=== PATIENT | male | born 1985 | race Asian ===

== ENCOUNTER 2021-03-15 07:23 | Emergency (ER) | payer MEDICAID, OTHER ==
[~2021-03-15] VITALS: Ht 177.8 cm; Wt 80.7 kg
[2021-03-15] MEDS ORDERED: ONDANSETRON ODT 4 MG TAB PO ONE (09:30)
[2021-03-15] MEDS ORDERED: ACETAMINOPHEN 500 MG TAB PO ONE (09:30)
[2021-03-15 12:00] VITALS: BP 146/86
== END 2021-03-15 10:57 | disposition home or self-care (01) ==
LOC: ER 07:23
DX: G43.909 Migraine, unspecified, not intractable, without status migrainosus (principal); J32.9 Chronic sinusitis, unspecified
CPT/HCPCS: 70450; 99284; Q0162

== ENCOUNTER 2021-03-15 21:20 | Emergency (ER) | payer MEDICAID ==
[~2021-03-15] VITALS: Ht 177.8 cm; Wt 80.7 kg
[2021-03-15 21:30] VITALS: BP 135/83
== END 2021-03-15 22:04 | disposition left against medical advice (07) ==
LOC: ER 21:23
DX: R10.2 Pelvic and perineal pain (principal); Z53.21 Procedure and treatment not carried out due to patient leaving prior to being seen by health care provider

== ENCOUNTER 2024-10-03 19:54 | Emergency (ER) | payer MEDICAID, OTHER ==
[~2024-10-03] VITALS: Ht 177.8 cm; Wt 84.0 kg
--- NOTE | 2024-10-03 20:47 | ED.PDOC ---
History of Present Illness HPI Comments 39-year-old male, with no significant history, presents with complaint of flu- like symptoms, that includes cough, throat pain, body aches, shortness of breath, and right chest-wall pain, today. He reports symptoms beginning 6x days ago. He describes chest pain as tightness that worsens with deep inspirations. Patient reports being seen and evaluated at an urgent care facility, yesterday, and being prescribed Keflex antibiotics and Ibuprofen after being diagnosed with a throat infection, with provider then informing the patient on cause of diarrhea being due to him "swallowing the infection." He also comments on sjqj-cjh-nrelrem cough-syrup use and, aside from diarrhea improving, has had no relief or improvement of other symptoms. He denies any fever, chills, nausea, vomiting, urinary symptoms, or other associated symptoms or modifying factors at this time. Chief Complaint: Flu like Time Seen by MD: 20:20 Primary Care Provider: DENIES Reviewed Notes: Nurses Notes, Medications, Allergies Allergies: Coded Allergies: NO KNOWN ALLERGIES (Unverified , 03/15/21) Information Source: Patient Mode of Arrival: Ambulatory Severity: Moderate Timing: Days Duration: Since onset Prehospital treatment: Other (Antibiotics, cough syrup, ibuprofen) Review of Systems: REVIEW OF SYSTEMS: No fever, no chills, or fatigue HEENT: No sore throat, no earache, no congestion, no neck pain. Cardiac: No chest pain. No palpitations. Lungs: No shortness of breath, no cough. GI: No nausea, no vomiting, no diarrhea, no constipation, no abdominal pain : No dysuria, frequency, or urgency. No hematuria. Musculoskeletal: No joint pain , no joint swelling, no extremity edema. Skin: No rash, no itching. Neuro: No headache, no dizziness, no weakness Vital Signs Vital Signs Date Time Temp Pulse Resp B/P (MAP) Pulse Ox O2 Delivery O2 Flow Rate FiO2 10/03/24 21:31 98.4 83 20 132/69 (90) 94 98.4 Physical Exam General: Awake, alert and oriented. No acute distress. Skin: Skin in warm, dry and intact. Appropriate color for ethnicity. HEENT: The head is normocephalic and atraumatic. Conjunctivae are clear without exudates or hemorrhage. Sclera is non-icteric. EOM are intact. No signs of nystagmus. Eyelids are normal in appearance without swelling or lesions. Oral mucosa is pink and moist Neck: The neck is supple with normal range of motion. No JVD. Cardiac: Heart rate and rhythm are normal. No murmurs, gallops, or rubs are auscultated. Respiratory: No signs of respiratory distress. Lung sounds are clear in all lobes bilaterally without rales, ronchi, or wheezes. Abdominal: Abdomen is soft, non-tender without distention. Bowel sounds are present and normoactive in all four quadrants. Extremities: Upper and lower extremities are atraumatic in appearance without deformity or edema. Musculoskeletal: Right, anterior chest-wall tenderness. Neurological: The patient is awake, alert and oriented to person, place, and time with normal speech. Speech is clear. There is no facial asymmetry. Psychiatric: Appropriate mood and affect. Good judgement and insight. No visual or auditory hallucinations. Past Medical History PAST MEDICAL HISTORY: Denies Surgical History: Denies all surgeries Family History Family History: Reviewed,noncontributory to illness Social History Smoker: Non-Smoker Lives In: Home Was a procedure done? Was a procedure done?: No EKG EKG : Pulse Rate (adult): 81 [place]: Normal Cardiac Rhythm: NSR Block: None Hypertrophy: None ST: Normal Differential Dx Considerations may include: URI, strep throat, viral syndrome, pneumonia, bronchitis X-Ray, Labs, Meds, VS Vital Signs Date Time Temp Pulse Resp B/P (MAP) Pulse Ox O2 Delivery O2 Flow Rate FiO2 10/03/24 21:31 98.4 83 20 132/69 (90) 94 98.4 10/03/24 20:47 81 10/03/24 20:27 81 10/03/24 20:26 99.0 91 18 138/86 (103) 97 Lab Test 10/03/24 21:26 Range/Units Influenza Type A Antigen Negative Negative Influenza Type B Antigen Negative Negative SARS-CoV-2 Antigen (Rapid) Negative NEGATIVE Current Medications Medications (Trade) Dose Ordered Sig/Tierra Route Start Time Stop Time Status Last Admin Acetaminophen (Tylenol Tablet Or Capsule) 1,000 mg ONCE ONCE PO 10/03/24 20:45 10/03/24 20:46 DC 10/03/24 21:27 Time of 1ST Reevaluation: 20:50 Reevaluation 1ST: Unchanged Patient Education/Counseling: Treatment, Need For Follow Up Family Education/Counseling: No Family Present Departure 1 Departure Time of Disposition: 21:17 Impression: Primary Impression: Upper respiratory infection Disposition: 01 HOME / SELF CARE / HOMELESS Condition: Stable Additional Instructions: ED DISCHARGE INSTRUCTIONS Instructions: Please read all instructions provided in this packet carefully. Although you have been discharged from the Emergency Department, this does not mean that you have a "clean bill of health". No definitive diagnosis for your symptoms has been made today. It is possible that you are in the process of d eveloping a serious illness. This is why you must return to the ED without fail if any new or worsening symptoms (especially if your symptoms include chest pain, trouble breathing, abdominal pain, fever, headache, confusion, trouble seeing, or trouble walking) It is also very important that you see a primary care doctor within the next 3-5 days to follow up. If you are unable to get an appointment, return to the ED for re-evaluation. Upper Respiratory Infection (Cold): Care Instructions Table of Contents Overview How can you care for yourself at home? When should you call for help? Credits Respiratory system, including nose, sinuses, throat, and lungs Overview An upper respiratory infection, or URI, is an infection of the nose, sinuses, or throat. URIs are spread by coughs, sneezes, and direct contact. The common cold is the most frequent kind of URI. The flu and sinus infections are other kinds of URIs. Almost all URIs are caused by viruses. Antibiotics won't cure them. But you can treat most infections with home care. This may include drinking lots of fluids and taking tvzx-ccj-gezccpo pain medicine. You will probably feel better in 4 to 10 days. Follow-up care is a samson part of your treatment and safety. Be sure to make and go to all appointments, and call your doctor if you are having problems. It's also a good idea to know your test results and keep a list of the medicines you take. How can you care for yourself at home? To prevent dehydration, drink plenty of fluids. Choose water and other clear liquids until you feel better. If you have kidney, heart, or liver disease and have to limit fluids, talk with your doctor before you increase the amount of fluids you drink. Ask your doctor if you can take an frkr-bid-esqestk pain medicine, such as acetaminophen (Tylenol), ibuprofen (Advil, Motrin), or naproxen (Aleve). Be safe with medicines. Read and follow all instructions on the label. No one younger than 20 should take aspirin. It has been linked to Jael syndrome, a serious illness. Be careful when taking rmmw-dbs-rudakxo cold or flu medicines and Tylenol at the same time. Many of these medicines have acetaminophen, which is Tylenol. Read the labels to make sure that you are not taking more than the recommended dose. Too much acetaminophen (Tylenol) can be harmful. Get plenty of rest. Use saline (saltwater) nasal washes to help keep your nasal passages open and wash out mucus and allergens. You can buy saline nose sprays at a grocery store or drugstore. Follow the instructions on the package. Or you can make your own at home. Add 1 teaspoon of non-iodized salt and 1 teaspoon of baking soda to 2 cups of distilled or boiled and cooled water. Fill a squeeze bottle or neti pot with the nasal wash. Then put the tip into your nostril, and lean over the sink. With your mouth open, gently squirt the liquid. Repeat on the other side. Use a vaporizer or humidifier to add moisture to your bedroom. Follow the instructions for cleaning the machine. Do not smoke or allow others to smoke around you. If you need help quitting, talk to your doctor about stop-smoking programs and medicines. These can increase your chances of quitting for good. When should you call for help? Call 911 anytime you think you may need emergency care. For example, call if: You have severe trouble breathing. Call your doctor now or seek immediate medical care if: You seem to be getting much sicker. You have new or worse trouble breathing. You have a new or higher fever. You have a new rash. Watch closely for changes in your health, and be sure to contact your doctor if: You have a new symptom, such as a sore throat, an earache, or sinus pain. You cough more deeply or more often, especially if you notice more mucus or a change in the color of your mucus. You do not get better as expected. Credits for Upper Respiratory Infection (Cold): Care Instructions Current as of: November 23, 2023 Author: Irene Sprout Route Staff Clinical Review Board All [employer] education is reviewed by a team that includes physicians, nurses, advanced practitioners, registered dieticians, and other healthcare professionals. Comments 39-year-old male with cough, upper respiratory symptoms. Presentation not consistent with ACS, pulmonary embolism, aortic dissection. Labs, imaging reviewed not urgently actionable. Patient felt stable for discharge home. Patient well-appearing, nontoxic. Advised supportive treatment. Advised prompt follow-up with PCP, return to the ED with any new, worsening or concerning symptoms. Extensive evaluation was performed in attempt to identify or rule out: (See differential diagnosis section) The following tests were ordered, and results were reviewed by me: (See diagnostic results section) The following test were independently interpreted by me: EKG, chest x-ray-no acute disease I reviewed and agreed with the following test results read by other providers: Chest x-ray I reviewed the following notes from the pt's past medical encounters: February/2021 encounter for medication refill Additional information was gathered from interviewing the following independent historians: N/A Discussion of management or test interpretation with external physician/other qualified health ocular care technician: N/A Decision regarding hospitalization or escalation of hospital level of care: Risks and benefits of admission for further treatment of patient's condition was considered however due to patient's stable condition patient will be discharged to follow up closely or return to care for worsening of condition or inability to follow up. Critical Care Note Critical Care Time?: No Stability Stability form required: No Heart Score Heart Score: Heart Score Response (Comments) Value History N/A 0 EKG N/A 0 Age N/A 0 Risk Factors N/A 0 Troponin N/A 0 Total 0 I personally scribed for JULINANA DEL REAL MD ([email or web address]) on 10/03/24 at 20:47. Electronically submitted by Larry Do ([email or web address]). JULIANNA DEL REAL MD Oct 03, 2024 20:47
--- NOTE | 2024-10-03 21:08 | DVH ---
CHEST RADIOGRAPH Indication: cp Technique: Frontal and lateral view of the chest was obtained Comparison: None FINDINGS: Lines and Tubes: None Lungs: Clear Pleura: No effusion. No pneumothorax. Cardiomediastinal contours: Unremarkable Bones: Unremarkable IMPRESSION: . No abnormality.
[2024-10-03] MEDS: ACETAMINOPHEN 500 MG TAB or CAP PO ONE (21:27)
[2024-10-03 22:00] VITALS: RESP 18; O2SAT 96
[2024-10-03 22:08] LABS: COVID19 ANTIGEN SOFIA FIA NEGATIVE (NEGATIVE)
[2024-10-03 22:09] LABS: Rapid Influenza A Negative (Negative); Rapid Influenza B Negative (Negative)
[2024-10-03 23:04] VITALS: BP 133/76; PULSE 73; RESP 15; TEMP 98.1; O2SAT 94
--- NOTE | 2024-10-04 11:06 | ECG ---
[facility] Test Date: 2024-10-03 Test Time: 20:27:57 Pat Name: PRERNA RYDER Department: ED Room: Gender: M Branch Lending Manager: KENJI : 1985 Requested By: JULIANNA DEL REAL Order Number: [id number] Reading MD: Measurements Intervals [place] Rate: 81 P: 71 NH: 162 QRS: 61 QRSD: 104 T: 54 QT: 361 QTc: 419 Interpretive Statements Sinus rhythm Abnormal R-wave progression, early transition Please click the below link to view image of tracing.
== END 2024-10-03 23:05 | disposition home or self-care (01) ==
LOC: ER 19:54
DX: J06.9 Acute upper respiratory infection, unspecified (principal); R07.89 Other chest pain; R05.9 Cough, unspecified; Z20.822 Contact with and (suspected) exposure to COVID-19
CPT/HCPCS: 36415; 71046; 87426; 87804; 93005